=== PATIENT | female | born 1960 | race Caucasian/White ===

== ENCOUNTER 2022-10-21 10:10 | Outpatient (REF) | payer BC, SELFPAY ==
[2022-10-21 11:15] LABS: Hematocrit 39.2 % (37.0-47.0); Hemoglobin 13.3 g/dl (12.0-16.0); Mean Corpuscular HGB Conc 33.9 g/dl (31.0-35.0); Mean Corpuscular Hemoglobin 31.4 pg (27.0-33.0); Mean Corpuscular Volume 92.5 fL (80.0-98.0); Mean Platelet Volume 9.5 fL (9.4-12.3); Platelet Count 250 X10*3/uL (160-400); Red Blood Count 4.24 X10*6/uL (4.20-5.50); Red Cell Distribution Width 11.3 % (11.0-16.0); White Blood Count 6.7 X10*3/uL (4.8-10.8)
[2022-10-21 12:16] LABS: Alanine Aminotransferase 11 U/L (0-31); Albumin Level 4.3 g/dL (3.5-5.0); Alkaline Phosphatase 53 U/L (39-117); Anion Gap 13 (12-20); Aspartate Amino Transferase 16 U/L (5-31); Bilirubin Total 0.6 mg/dL (0.0-1.0); Blood Urea Nitrogen 15 mg/dL (9-16); Calcium 9.3 mg/dL (8.4-10.2); Carbon Dioxide 28 mmol/L (22-29); Chloride 104 mmol/L (96-108); Cholesterol 214 mg/dL; Estimated Glomerular Filt Rate > 60; Glucose Fasting 96 mg/dL (60-99); HDL Cholesterol 91 mg/dL; LDL Cholesterol Calculated 109 mg/dl; Potassium 4.1 mmol/L (3.3-5.1); Sodium 141 mmol/L (135-145); Total Protein 6.6 g/dL (6.5-8.0); Triglycerides 73 mg/dL
[2022-10-21 12:36] LABS: TSH reflex Free T4 2.51 uIU/mL (0.32-4.0)
== END 2022-10-21 10:11 | disposition home or self-care (01) ==
LOC: HO.WFDLDS 10:10
PROVIDERS: Visit Provider Hospitalist
DX: Z00.00 Encounter for general adult medical examination without abnormal findings (principal)
CPT/HCPCS: 36415; 80053; 80061; 84443; 85027

== ENCOUNTER 2023-09-21 15:19 | Outpatient (AMB) | payer BC, SELFPAY ==
--- NOTE | 2023-09-21 15:23 | MHC.PC.OV ---
Vital Signs 09/21/23 15:24 Height 5 ft 5 in Weight 152 lb 8 oz BMI 25.4 BP 122/72 Blood Pressure Location Rt brachial Position Sitting Respiration 13 Pulse 84 Pulse Source Pulse Oximeter Temp 97.5 F Temp Source Temporal Artery Scan Pulse Oximetry (%) 99 Oxygen Delivery Method Room Air Intake Visit Reasons: leg pain, see comments Intake Note: Patient is having pain in left knee. Patient states that back in january she was walking her big powerful dog and the next day her left knee was hurting, she nursed it back to health until it was painful anymore. Patient states that a couple weeks ago she doesnt recall what she did but now the knee pain back. User Interface Designer Required: No Accompanied by: Self / Same As Patient Allergies acetaminophen [From PERCOCET] Allergy (Unknown, Verified 09/21/23 15:30) ITCHINESS oxycodone [From PERCOCET] Allergy (Unknown, Verified 09/21/23 15:30) ITCHINESS Tobacco use date assessed: 09/21/23 Fall risk assessment: No Falls in past year Last assessed Fall Risk: 09/21/23 Dental Screening Dental Screen Date: 09/21/23 Did you have a dental visit in the last 12 months?: Yes Did you have a dental problem in the last 6 months where you did not have access to dental care?: No Was dental information given to patient?: Patient has dentist HPI leg pain, see comments HPI Details 63 y/o female presents with complaints of leg pain. Patient is having pain in left knee. Patient states that back in january she was walking her big powerful dog and the next day her left knee was hurting, she nursed it back to health until it was painful anymore. Patient states that a couple weeks ago she does not recall what she did but now the knee pain back. [facility] Medical History No pertinent past medical history Surgical History No pertinent past surgical history Social History Housing: House Patient Tobacco Use Status: Current everyday Tobacco user Cigarette Packs Per Day: 1 Cigarettes Per Day: 20 Years Smoked: 5 e-Cigarette/Vaping Use: Never Used service: No Current occupational status: employed Current occupation: teacher Cognitive needs: No Hearing needs: No Vision needs: No Questionnaire Thrive Questionnaire Date Thrive assessed: 09/19/22 Review of Systems Const Denies chills, Denies fatigue, Denies fever(s), Denies headache(s) and Denies weakness ENT Denies dizziness and Denies headache(s) Card Denies dyspnea Resp Denies cough, Denies dyspnea, Denies wheezing and Denies other (shortness of breath) Musc Denies numbness and Denies tingling Neuro Denies dizziness, Denies headache(s), Denies numbness, Denies tingling and Denies weakness Psych Denies anxiety and Denies depression Endo Denies fatigue Aller/Immun Denies wheezing Physical exam (Primary Care) Vital Signs: Last Vital Signs Temp 97.5 F 09/21/23 15:24 Pulse 84 09/21/23 15:24 Resp 13 09/21/23 15:24 BP 122/72 09/21/23 15:24 Pulse Ox 99 09/21/23 15:24 Oxygen Delivery Method Room Air 09/21/23 15:24 BMI result Body Mass Index 25.4 Tobacco/Smoking Status: Tobacco use Status Tobacco use date assessed 09/21/23 09/21/23 15:31 Patient Tobacco Use Status Current everyday Tobacco 09/21/23 15:31 e-Cigarette/Vaping Use Never Used 09/21/23 15:38 Thrive Assessment: Date of Thrive Assessment Date Thrive assessed 09/19/22 09/21/23 15:31 Const General: well developed; No acute distress Nutritional Appearance: well nourished Orientation/consciousness: patient oriented x3 [facility] Head: Yes normocephalic and Yes atraumatic Eyes General: appearance normal, both eyes and all related structures Pupils: Equal, round and reactive pupils present EOM: EOMs intact bilaterally Resp Effort & Inspection: normal respiratory effort Neuro General: patient oriented x3 and gait normal Cranial nerves: Yes Equal, round and reactive pupils present Psych Affect: normal affect Assessment and Plan Assessment & Plan (1) Left knee pain: Code(s): M25.562 - Pain in left knee Plan: Left?knee?pain?and?swelling?with?patellar?crepitus Start?physical?therapy Use?ibuprofen/NSAIDs Ice/heat Will?check?x-ray Will?also?check?inflammatory?marker Referred?to[facility]as?per?patient?request Orders: Orders CRP High Sensitivity Today M25.562 - Pain in left knee Rheumatoid Factor Today M25.562 - Pain in left knee Microalbumin, Random (w Creat) Today I10 - Essential (primary) hypertension PT Evaluation and Treatment Today M25.562 - Pain in left knee XR knee LT 3V Today M25.562 - Pain in left knee Erythrocyte Sedimentation Rate Today M25.562 - Pain in left knee Comprehensive [place]. Panel Fast Today Z00.00 - Encounter for general adult medical examination without abnormal findings Lipid Panel Today Z00.00 - Encounter for general adult medical examination without abnormal findings TSH reflex Free T4 Today Z00.00 - Encounter for general adult medical examination without abnormal findings UA and rflx microscopic Today Z00.00 - Encounter for general adult medical examination without abnormal findings Referrals Orthopedics Referral M25.562 - Pain in left knee Coding Level of Care Code Est Pt Level 3 (14282) Diagnoses Left knee pain M25.562
[2023-09-21 15:24] VITALS: BP 122/72; PULSE 84; RESP 13; TEMP 36.4; O2SAT 99; BMI 25.4
== END 2023-09-21 16:39 | disposition home or self-care (01) ==
PROVIDERS: PCP Hospitalist; Visit Provider Family Medicine
DX: M25.562 Pain in left knee (principal)
CPT/HCPCS: 99213

== ENCOUNTER 2024-03-18 08:56 | Outpatient (AMB) | payer BC, SELFPAY ==
[2024-03-18 09:14] VITALS: BP 120/72; PULSE 74; O2SAT 97; BMI 25.5
--- NOTE | 2024-03-18 09:14 | MHC.PC.OV ---
Vital Signs 03/18/24 09:14 Height 5 ft 5 in Weight 153 lb 6 oz BMI 25.5 BP 120/72 Blood Pressure Location Lt brachial Position Sitting Pulse 74 Pulse Source Pulse Oximeter Pulse Oximetry (%) 97 Oxygen Delivery Method Room Air Intake Visit Reasons: Annual PE Intake Note: Patient is here for her physical. Allergies acetaminophen [From PERCOCET] Allergy (Unknown, Verified 03/18/24 09:19) ITCHINESS oxycodone [From PERCOCET] Allergy (Unknown, Verified 03/18/24 09:19) ITCHINESS Medication List - Last Reconciled 03/18/24 by Jose Juan Blair MD No Known Home Meds Tobacco use date assessed: 03/18/24 Fall risk assessment: No Falls in past year Last assessed Fall Risk: 03/18/24 Dental Screening Dental Screen Date: 09/21/23 HPI Annual PE HPI Details 63 y/o female presents for a CPE with f/u labs and health maintenance. No recent labs to review. Pt reports her heart feels heavy recently and notes this only happens at night when she lays down. HPI Comments History of Present Illness Details Documentation assistance for Jose Juan Blair MD, was provided by Neil Rangel,? Firefighting Equipment Specialist on 03/18/2024 at 9:53 AM EST. I, Dr. Blair, have read, observed, and verified documentation. [facility] Medical History (Updated 03/18/24 @ 09:55 by Neil Rangel) No pertinent past medical history Surgical History (Updated 03/18/24 @ 09:21 by Carla Calles SHIPPING TEAM LEADER) H/O left knee surgery No pertinent past surgical history Social History Housing: House Patient Tobacco Use Status: Current everyday Tobacco user Cigarette Packs Per Day: 1 Cigarettes Per Day: 20 Years Smoked: 5 e-Cigarette/Vaping Use: Never Used service: No Current occupational status: employed Current occupation: teacher Cognitive needs: No Hearing needs: No Vision needs: No Questionnaire PHQ-9 Over the last 2 weeks, how often have you been bothered by any of the following problems? 1. Little interest or pleasure in doing things: not at all 2. Feeling down, depressed, or hopeless: not at all 3. Trouble falling or staying asleep, or sleeping too much: not at all 4. Feeling tired or having little energy: not at all 5. Poor appetite or overeating: not at all 6. Feeling bad about yourself - or that you are a failure or have let yourself or your family down: not at all 7. Trouble concentrating on things, such as reading the newspaper or watching television: not at all 8. Moving or speaking so slowly that other people could have noticed. Or the opposite - being so fidgety or restless that you have been moving around a lot more than usual: not at all 9. Thoughts that you would be better off or of hurting yourself in some way: not at all Total score: 0 Depression Screening Interpretation: Negative Depression Screening Done: Yes 71280 - PHQ-9 Billing: Yes Source: Developed by Drs. Maxi Holly, Katherine Barrios, Tony Liao and colleagues, with an educational modesto from [employer]. Thrive Questionnaire Date Thrive assessed: 03/18/24 I am a: Patient What is your living situation today?: I have a steady place to live Within the past 12 months, did the food you bought not last and you didn't have the money to get more?: Never true Within the past 12 months, did you worry whether your food would run out before you got money to buy more?: Never true Do you have trouble paying for medicines?: No Do you have trouble getting transportation to medical appointments?: No Do you have trouble paying your heating and electricity bill?: No Do you have trouble taking care of your child, family member or friend?: No Do you have trouble with day-to-day activities such as bathing, preparing meals, shopping, managing finances, etc.?: No Are you currently unemployed and looking for a job?: No Are you interested in more education?: No THRIVE Score: 0 AUDIT C Alcohol Use Questionnaire (AUDIT-C) 1. How often do you have a drink containing alcohol?: 4 or more times a week 2. How many drinks containing alcohol do you have on a typical day when you are drinking?: 1 or 2 3. How often do you have six or more drinks on one occasion?: Never Total Score: 4 BRONWYN-7 AMB Questionnaire BRONWYN-7 Date BRONWYN - 7 assessed: 03/18/24 Feeling nervous, anxious, or on edge: 0 = Not at all Not being able to stop or control worryin = Not at all Worrying too much about different things: 0 = Not at all Trouble relaxin = Not at all Being so restless that it is hard to sit still: 0 = Not at all Becoming easily annoyed or irritable: 0 = Not at all Feeling afraid as if something awful might happen: 0 = Not at all Total BRONWYN-7 score (0-4 normal; 5-9 mild; 10-14 moderate; 15-21 severe): 0 Source: Developed by Drs. Maxi Holly, Katherine Barrios, Tony Liao and colleagues, with an educational modesto from [employer]. BRONWYN-7 Assessment Billing BRONWYN-7 Assessment Tool: BRONWYN-7 Assessment [id number] Review of Systems Const Denies chills, Denies fatigue, Denies fever(s), Denies headache(s) and Denies weakness Eyes Denies change in vision ENT Denies dizziness, Denies headache(s), Denies hearing loss, Denies nasal congestion, Denies sinus pain, Denies sinus pressure and Denies sore throat Card Denies chest pain, Denies lightheadedness, Denies dyspnea and Denies other (palpitations) Resp Denies cough, Denies dyspnea and Denies wheezing GI Denies abdominal pain, Denies melena, Denies hematochezia, Denies change in bowel habits, Denies dyspepsia and Denies nausea Denies hematuria and Denies dysuria Musc Denies abnormal gait, Denies myalgias, Denies arthralgias, Denies numbness and Denies tingling Skin/Breast Denies rash, Denies unusual bruising and Denies wounds Neuro Denies abnormal gait, Denies dizziness, Denies headache(s), Denies memory loss, Denies numbness, Denies Sensory deficit (Neuro), Denies tingling and Denies weakness Psych Denies anxiety, Denies depression and Denies memory loss Endo Denies cold intolerance, Denies fatigue, Denies heat intolerance, Denies polydipsia and Denies polyuria Vic/Lymph Denies easy bleeding and Denies easy bruising Aller/Immun Denies wheezing Physical exam (Primary Care) Vital Signs: Last Vital Signs Pulse 74 06/03/24 09:14 BP 120/72 03/18/24 09:14 Pulse Ox 97 03/18/24 09:14 Oxygen Delivery Method Room Air 03/18/24 09:14 BMI result Body Mass Index 25.5 Tobacco/Smoking Status: Tobacco use Status Tobacco use date assessed 03/18/24 03/18/24 09:20 Patient Tobacco Use Status Current everyday Tobacco 03/18/24 09:14 e-Cigarette/Vaping Use Never Used 03/18/24 09:14 PHQ-9: PHQ-9 Score PHQ-9: Total score 0 03/18/24 09:42 Depression Screening Interpretation: Negative Thrive Assessment: Date of Thrive Assessment Date Thrive assessed 03/18/24 03/18/24 09:27 Const General: no acute distress, well developed, alert and awake Nutritional Appearance: well nourished Orientation/consciousness: patient oriented x3 HENMT Head: Yes normocephalic and Yes atraumatic Ears: hearing grossly normal bilaterally and TM's normal bilaterally General nose exam: Normal external nose present and Normal nares present Mouth: Normal oral and palatal mucosa present and moist mucous membranes Teeth and gingiva: dentition normal Throat: Yes posterior oropharynx normal Eyes General: appearance normal, both eyes and all related structures Pupils: Equal, round and reactive pupils present and Pupil accommodation reflex normal EOM: EOMs intact bilaterally Neck Neck: Yes normal visual inspection, Yes no lymphadenopathy and Yes trachea midline Thyroid: Thyroid normal Carotids: no bruits Lymphatic: no lymphadenopathy noted Chest Chest palpation & inspection: normal inspection of the chest Resp Effort & Inspection: normal respiratory effort Auscultation: clear to auscultation bilaterally Cardio Rate: regular rate Rhythm: regular rhythm Heart sounds: S1 normal heart sound present, S2 normal heart sound present, no gallops, no murmurs and no rubs Bruits: no abdominal aortic bruits and no carotid bruits GI Palpation (GI): No Abdominal aortic bruit present, Soft to palpation, nontender, No hepatosplenomegaly present and No Rebound tenderness present Auscultation: normal bowel sounds General: Yes no CVA tenderness Back/Spine/Pelvis Back: no CVA tenderness Cervical Spine: cervical ROM normal and No Cervical spine tenderness Thoracic/Lumbar Spine: thoraco-lumbar ROM normal, No pain with thoraco-lumbar ROM, No thoracic spinal tenderness and No lumbar spinal tenderness Skin Lesions: no lesions Rashes: no rashes Trauma: no lacerations or abrasions Wounds: no wounds Nails: normal Neuro General: patient oriented x3 Cranial nerves: Yes Equal, round and reactive pupils present Cognition (Neuro): normal cognition Gait exam (Neuro): Normal gait present Motor exam (neuro): 5/5 motor strength present throughout Sensory Exam: No Sensory deficit (Neuro) Deep tendon reflexes (DTR's): Right patellar reflex intensity grade: 2+ and Left patellar reflex intensity grade: 2+ Extrem General: Yes normal to inspection and No edema Psych Appearance: grossly normal Affect: normal affect Attitude: cooperative Thought process: Normal thought process present Assessment and Plan Assessment & Plan (1) Adult general medical exam: Code(s): Z00.00 - Encounter for general adult medical examination without abnormal findings Plan: 63-year-old?female?presents?for?complete?physical?exam Encouraged?healthy?diet?with?active?lifestyle?and?exercise?as?tolerated (2) Palpitations: Code(s): R00.2 - Palpitations Plan: Patient?describes?heartbeats?at?night?as?heavy?heartbeats Auscultation?is?normal EKG:??Normal?sinus?rhythm,?normal?axis,?normal?intervals,?no?hypertrophy,?no?ST-T-wave?changes. Reassured?patient (3) Left knee pain: Code(s): M25.562 - Pain in left knee Plan: Patient?has?seen?ortho?since?last?visit?and?was?found?to?have?a?meniscal?tear?which?was?repaired. Pain?is?resolving/resolved. (4) Screening for cervical cancer: Code(s): Z12.4 - Encounter for screening for malignant neoplasm of cervix Plan: Followed?by?her?marbleizing machine tender?and?she?says?she?is?up-to-date?with?last?Pap?smear?within?3?years She?says?she?has?had?HPV?about?7?or?8?years?ago. Advised?her?to?follow-up?with?her?marbleizing machine tender?as?recommended (5) Breast cancer screening by mammogram: Code(s): Z12.31 - Encounter for screening mammogram for malignant neoplasm of breast Plan: Patient?has?not?had?a?Pap?smear?in?a?few?years. Ordered (6) Screening for colon cancer: Code(s): Z12.11 - Encounter for screening for malignant neoplasm of colon Plan: Last?colonoscopy?several?years?ago?and?her?behavior management specialist?is?DrBenjamin?Stefania No?family?history?of?colon?cancer?or?polyps.??No?abnormal?colonoscopies. She?wants?to?switch?to?Cologuard?testing?for?her?next?screening?but?currently?she?is?up-to-date. Follow-up?with?GI?as?recommended Orders: Orders AMB EKG-In Office Today R00.2 - Palpitations MM tomosynthesis screening BI Today Z12.31 - Encounter for screening mammogram for malignant neoplasm of breast Coding Level of Care Code Est Pt Level 3 (80366) Est Pt Prev Care 40-64y(00892) Diagnoses Adult general medical exam Z00.00 Palpitations R00.2 Left knee pain M25.562 Screening for cervical cancer Z12.4 Breast cancer screening by mammogram Z12.31 Screening for colon cancer Z12.11 Additional Codes BRONWYN-7 Assessment Billing - BRONWYN-7 Assessment Tool: BRONWYN-7 Assessment 10876 ([id number])
== END 2024-03-18 10:21 | disposition home or self-care (01) ==
PROVIDERS: PCP Family Medicine; Visit Provider Family Medicine
DX: Z00.00 Encounter for general adult medical examination without abnormal findings (principal); R00.2 Palpitations; M25.562 Pain in left knee; Z12.31 Encounter for screening mammogram for malignant neoplasm of breast; Z12.11 Encounter for screening for malignant neoplasm of colon
CPT/HCPCS: 93000; 99213; 99396

== ENCOUNTER 2024-03-18 10:11 | Outpatient (REF) | payer BC, SELFPAY ==
[2024-03-18 11:48] LABS: Appearance Urine Clear; Color Urine Yellow; Glucose Urine UA Negative (Negative); Leukocyte Esterase Urine Trace (Negative); Nitrite Urine Negative (Negative); PH 5.5 (5.0-9.0); UMIC TRIGGER UA YES; Urine Blood Negative (Negative); Urine Ketones Negative (Negative); Urine Protein Negative (Neg-Trace)
[2024-03-18 11:58] LABS: Erythrocyte Sedimentation Rate 3 MM/HR (0-20)
[2024-03-18 12:02] LABS: Bacteria Urine 1+ (None Seen); Hyaline Casts Urine 0-2 /LPF (0-2); RBC Urine 0-2 /HPF (0-2); WBC Urine 0-5 /HPF (0-5)
[2024-03-18 12:20] LABS: Creatinine Urine 118.55 mg/dL; Microalbum/Creatinine Ratio Ur 10.1 ug/mg cr (<30)
[2024-03-18 12:21] LABS: Rheumatoid Factor < 13.0 IU/mL (<15.0)
[2024-03-18 12:29] LABS: Alanine Aminotransferase 10 U/L (0-31); Albumin Level 4.3 g/dL (3.5-5.0); Alkaline Phosphatase 53 U/L (39-117); Anion Gap 14 (12-20); Aspartate Amino Transferase 18 U/L (5-31); Bilirubin Total 0.4 mg/dL (0.0-1.0); Blood Urea Nitrogen 16 mg/dL (9-16); Calcium 9.4 mg/dL (8.4-10.2); Carbon Dioxide 25 mmol/L (22-29); Chloride 108 mmol/L (96-108); Cholesterol 213 mg/dL (<200); Estimated Glomerular Filt Rate > 60; Glucose Fasting 97 mg/dL (60-99); HDL Cholesterol 106 mg/dL (>40); LDL Cholesterol Calculated 96 mg/dL (<100); Sodium 143 mmol/L (135-145); Triglycerides 55 mg/dL (<150)
[2024-03-18 12:37] LABS: TSH reflex Free T4 1.86 uIU/mL (0.32-4.0)
== END 2024-03-18 10:12 | disposition home or self-care (01) ==
LOC: HO.WFDLDS 10:11
PROVIDERS: Visit Provider Family Medicine
DX: Z00.00 Encounter for general adult medical examination without abnormal findings (principal); M25.562 Pain in left knee; I10 Essential (primary) hypertension
CPT/HCPCS: 36415; 80053; 80061; 81001; 82043; 82570; 84443; 85652; 86141; 86431

== ENCOUNTER → 2024-04-23 17:05 | Outpatient (AMB) | payer BC, SELFPAY ==
--- NOTE | 2024-04-23 16:56 | A.OFFPC_ITS ---
Intake Visit Reasons: f/u CPE-labs via telemedicine Intake Note: Patient is scheduled to follow up on blood work today. Allergies acetaminophen [From PERCOCET] Allergy (Unknown, Verified 04/23/24 16:59) ITCHINESS Tobacco use date assessed: 03/18/24 Fall risk assessment: No Falls in past year Last assessed Fall Risk: 04/23/24 Dental Screening Dental Screen Date: 09/21/23 Did you have a dental visit in the last 12 months?: Yes Did you have a dental problem in the last 6 months where you did not have access to dental care?: No Was dental information given to patient?: Patient has dentist HPI f/u CPE-labs via telemedicine HPI Details 63 y/o female presents to f/u CPE-labs v ia telemedicine. Labs were drawn 03/18/24. Reviewed labs with pt. Triglycerides 55. TC 213. LDL 96. HDL 106. PFSH Medical History (Updated 03/18/24 @ 09:55 by Neil Rangel) No pertinent past medical history Surgical History (Updated 03/18/24 @ 09:21 by Carla Calles [facility]) H/O left knee surgery No pertinent past surgical history Social History Housing: House Patient Tobacco Use Status: Current everyday Tobacco user Cigarette Packs Per Day: 1 Cigarettes Per Day: 4 Years Smoked: 5 Packs Per Year: 5 Packs per year/per ci.00 e-Cigarette/Vaping Use: Never Used service: No Current occupational status: employed Current occupation: teacher Cognitive needs: No Hearing needs: No Vision needs: No Questionnaire Thrive Questionnaire Date Thrive assessed: 03/18/24 BRONWYN-7 AMB Questionnaire BRONWYN-7 Date BRONWYN - 7 assessed: 03/18/24 Source: Developed by Drs. Maxi Holly, Katherine Barrios, Tony Liao and colleagues, with an educational modesto from [employer]. Review of Systems Const Denies chills, Denies fatigue, Denies fever(s), Denies headache(s) and Denies weakness ENT Denies dizziness and Denies headache(s) Card Denies dyspnea Resp Denies cough, Denies dyspnea, Denies wheezing and Denies other (shortness of breath) Musc Denies numbness and Denies tingling Neuro Denies dizziness, Denies headache(s), Denies numbness, Denies tingling and Denies weakness Psych Denies anxiety and Denies depression Endo Denies fatigue Aller/Immun Denies wheezing Physical exam (Primary Care) Tobacco/Smoking Status: Tobacco use Status Tobacco use date assessed 03/18/24 04/23/24 17:01 Patient Tobacco Use Status Current everyday Tobacco 04/23/24 17:01 e-Cigarette/Vaping Use Never Used 04/23/24 17:01 Thrive Assessment: Date of Thrive Assessment Date Thrive assessed 03/18/24 04/23/24 17:01 Telehealth Telehealth Telehealth Platform: Telephone Location of provider rendering services: practice address Location of patient: other Patient Identification confirmed using: Name, : Yes Telehealth method: voice only Patient verbally consented to treatment: Yes Patient verbally consented to billing insurance company: Yes Patient informed of any privacy concerns related to visit: No Minutes spent on Phone/Video with Pt.: 6 Assessment and Plan Assessment & Plan (1) Left knee pain: Code(s): M25.562 - Pain in left knee Plan: Rheumatoid?factor?in?inflammatory?markers?are?negative. Patient?has?since?had?further?workup?and?had?a?menisca l?tear.??Now?resolved?and?patient?has?no?further?pain (2) Breast cancer screening by mammogram: Code(s): Z12.31 - Encounter for screening mammogram for malignant neoplasm of breast Plan: Had?ordered?mammogram.??She?has?not?gotten?scheduled?yet?though?she?was?pravin dBenjamin Reminded?patient?to?get?this?scheduled?and?she?will?do?so Plan Lab?work?was?all?okay Orders: Orders Complete Blood Count Auto Diff Today Z00.00 - Encounter for general adult medical examination without abnormal findings Lipid Panel Today Z00.00 - Encounter for general adult medical examination without abnormal findings TSH reflex Free T4 Today Z00.00 - Encounter for general adult medical examination without abnormal findings Comprehensive [place]. Panel Fast Today Z00.00 - Encounter for general adult medical examination without abnormal findings Microalbumin, Random (w Creat) Today I10 - Essential (primary) hypertension UA and rflx microscopic Today Z00.00 - Encounter for general adult medical examination without abnormal findings Coding Level of Care Code Tele Est Pt Level 2 (74060) Diagnoses Left knee pain M25.562 Breast cancer screening by mammogram Z12.31
== END ==
LOC: HO.HMGFM 17:05
PROVIDERS: PCP Family Medicine; Visit Provider Family Medicine
DX: M25.562 Pain in left knee (principal); Z12.31 Encounter for screening mammogram for malignant neoplasm of breast
CPT/HCPCS: 99441

== ENCOUNTER 2025-03-18 10:59 | Outpatient (REF) | payer BC, SELFPAY ==
[2025-03-18 14:52] LABS: Appearance Urine Clear; Color Urine Yellow; Glucose Urine UA Negative (Negative); Leukocyte Esterase Urine Negative (Negative); Nitrite Urine Negative (Negative); Specific Gravity - Urine <= 1.005 (1.005-1.025); Urine Blood Negative (Negative); Urine Ketones Negative (Negative); Urine Protein Negative (Neg-Trace)
[2025-03-18 14:53] LABS: MANUAL DIFF FLAG NO
[2025-03-18 15:03] LABS: Basophils Percent Auto 0.6 % (0-2); Eosinophils Percent Auto 0.6 % (0-4); Hematocrit 36.9 % (37.0-47.0); Hemoglobin 12.5 g/dl (12.0-16.0); Imm Gran Abs Auto 0.02 X10*3/uL (0.00-0.03); Imm Gran Pct Auto 0.4 % (0.0-0.4); Lymphocytes Absolute Auto 1.4 X10*3/uL (1.2-4.9); Lymphocytes Percent Auto 26.1 % (20-40); Mean Corpuscular HGB Conc 33.9 g/dl (31.0-35.0); Mean Corpuscular Hemoglobin 31.5 pg (27.0-33.0); Mean Corpuscular Volume 92.9 fL (80.0-98.0); Mean Platelet Volume 9.8 fL (9.4-12.3); Monocytes Absolute Auto 0.3 X10*3/uL (0.1-1.2); Monocytes Percent Auto 5.3 % (2-11); Neutrophils Absolute Auto 3.5 x10*3/uL (2.0-8.3); Platelet Count 243 X10*3/uL (160-400); Red Blood Count 3.97 X10*6/uL (4.20-5.50); Red Cell Distribution Width 11.4 % (11.0-16.0); White Blood Count 5.3 X10*3/uL (4.8-10.8)
[2025-03-18 15:37] LABS: Microalbumin Urine < 5.0 mg/L
[2025-03-18 16:57] LABS: Alanine Aminotransferase 17 U/L (0-31); Albumin Level 4.3 g/dL (3.5-5.0); Anion Gap 12 (12-20); Aspartate Amino Transferase 27 U/L (5-31); Bilirubin Total 0.5 mg/dL (0.0-1.0); Blood Urea Nitrogen 11 mg/dL (9-16); Calcium 9.5 mg/dL (8.4-10.2); Carbon Dioxide 26 mmol/L (22-29); Chloride 107 mmol/L (96-108); Cholesterol 225 mg/dL (<200); Estimated Glomerular Filt Rate > 60; Glucose Fasting 86 mg/dL (60-99); HDL Cholesterol 98 mg/dL (>40); LDL Cholesterol Calculated 112 mg/dL (<100); Potassium 4.2 mmol/L (3.3-5.1); Sodium 141 mmol/L (135-145); Total Protein 6.5 g/dL (6.5-8.0); Triglycerides 78 mg/dL (<150)
[2025-03-18 17:14] LABS: Alkaline Phosphatase 42 U/L (39-117); TSH reflex Free T4 2.78 uIU/mL (0.32-4.0)
== END 2025-03-18 11:00 | disposition home or self-care (01) ==
LOC: HO.WFDLDS 10:59
PROVIDERS: Visit Provider Family Medicine
DX: Z00.00 Encounter for general adult medical examination without abnormal findings (principal); I10 Essential (primary) hypertension
CPT/HCPCS: 36415; 80053; 80061; 81003; 82043; 82570; 84443; 85025

== ENCOUNTER 2025-05-05 14:59 | Outpatient (AMB) | payer BC, SELFPAY ==
--- NOTE | 2025-05-05 15:02 | A.OFFPC_ITS ---
Vital Signs 05/05/25 15:06 Height 5 ft 6 in Weight 140 lb BMI 22.6 BP 108/67 Blood Pressure Location Lt brachial Position Sitting Respiration 12 Pulse 62 Pulse Source Pulse Oximeter Temp 97.1 F Temp Source Oral Pulse Oximetry (%) 97 Oxygen Delivery Method Room Air Intake Visit Reasons: Physical / Dr. Bennett Pt. 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 Allergies acetaminophen (From PERCOCET) Allergy (Unknown, Verified 05/05/25 15:13) ITCHINESS Medication List - Last Reconciled 05/05/25 by KATYA Euceda- No Known Home Meds Tobacco use date assessed: 05/05/25 Fall risk assessment: No Falls in past year Last assessed Fall Risk: 05/05/25 Dental Screening Dental Screen Date: 05/05/25 Did you have a dental visit in the last 12 months?: Yes Did you have a dental problem in the last 6 months where you did not have access to dental care?: No Was dental information given to patient?: Patient has dentist HPI HPI Comments History of Present Illness Details 64 y/o F with hx of HPV, hx of skin ca ( squamous cell ca, basal cell ca and melanoma in situ), current smoker s/p meniscal tear repair L Fhx: Dad age 92; Brother Cirrhosis on hospice 55; Health Maintenance: Tdap 2020 Pap 2020 Colon - done by Dr Aguiar 2019, 10 year recall, wants Cologaurd next screen Mammo declined Dexa declined Lung ca screening Specialists: Derm Malachi Renner [place], [place] [employer] [facility] - contacts History of Present Illness - The patient is a 64 year old female pr esenting for a CPE. Will be transfer of care from Dr Ta per her request - record was reviewed. c/o bruised spine and vertigo. - Vertigo episode during a cross-country trip; resolved after stopping driving; no further episodes. This has happened a few times over the last year - Reports lingering bruise sensation on the spine; pain varies, aggravated by sitting/driving. Started 1 yr ago after long distance drive. - Current smoker Family History - Mother had ductal carcinoma, received radiation therapy. - Cousin with breast cancer, never had wanda dai. - Father at 90 years, heart-rel ated. - Brother diagnosed with cirrhosis. - Sister diagnosed with Atrial Fibrillat ion. - No known family history of liver disea se in females. Social History - Recent usp, previously working. - Reports trip across the country as a r ecent activity. - Family status includes five children a nd awaiting the third grandchild. - Occasional alcohol consumption, with n o reports of excessive intake. - Smoker, recently attempted cessation f or three months. - Active lifestyle with regular walking; decreased since previous May. Health Maintenance - Last Pap smear: 2020, results normal. - Normal colonoscopy in 2019, next scree leonel planned in 10 years. - Bone density noted to be normal in the past declined future - Skin cancer surveillance every six mon ths, recent lesion removal. - History of HPV. - No recent mammogram, declined future Review of Systems - Cardiovascular: Reports heart feels un usually heavy when lying down. Denies shortness of breath. - Musculoskeletal: Reports persistent br uise on the lower spine, history of knee surgery. - Neurological: Reports a past significa nt episode of vertigo, no recent occurrences. - Gastrointestinal: Diagnosed with anemi a, status mild. - Eyes: Denies vision changes despite re quiring reading glasses. - Respiratory: Previously a smoker, atte mpting cessation. Physical Exam General: Well developed, well nourished, in no acute distress. Appears stated age. Head: Normocephalic, atraumatic. Eyes: Pupils are equal, round and reactive to light and accommodation. Conjunctivae are clear. Vision grossly normal. Ears: TMs clear AU, EACS WNL Nose: Patent, without discharge. Neck: Supple, no adenopathy or thyromegaly. Breast: Declined mammogram, will consider in the future. Lungs: Clear to auscultation bilaterally. No rales, rhonchi or wheeze noted. Good air flow in all yang. Heart: Regular rate and rhythm. 2/6 murmur noted (new). No clicks, rubs or gallops are noted. No carotid bruit bilat Abdomen: Bowel sounds present in all quadrants. The abdomen is soft, nontender, with no masses or organomegaly noted. No hernias are noted. + palpable and audible pulse over Abd aorta : Deferred. Reviewed recommendations for routine [employer]. Pulses: Peripheral pulses are equal and palpable bilaterally. Extremities: No clubbing, cyanosis nor edema is noted. Neurologic: Gait and station normal. Cranial Nerves 2-12 intact. Motor strength grossly symmetrical and intact. No sensory loss. Balance normal. Pain over distal thoracic spine w/ palpation Skin: No rashes, ulcers, or lesions noted. Turgor is good. Skin color is good. Hair and nails are without abnormalities. Psych: Normal eye contact, affect and mood appropriate, and normal interactions. Patient is alert and appropriate to context. Results 03/2025 - Labs: Mild anemia noted with RBC of 3. 97 and hematocrit of 36.9. Fasting glucose 86. Cholesterol: Total - 225, LDL - 112, HDL - 98. Normal CBC, electrolytes, renal and liver function tests. - Tests and Diagnostics: Normal bone den sity test, normal colonoscopy in 2019. - TSH levels normal. - HDL level provides cardio protection a midst high total cholesterol. Discussion Notes I discussed with the patient the presence of a heart murmur which will require an echocardiogram to further evaluate. We talked about the nature of murmurs and potential implications including valve issues or aneurysms. I explained the necessity for this diagnostic study and the potential follow-up depending on results. I reviewed the patient's smoking history and strongly advised smoking cessation for cardiovascular health. The patient was informed of the significance of cholesterol levels and advised on monitoring. We also discussed potential management strategies for the recurring vertigo, including possible vestibular therapy if symptoms return. The importance of regular dermatological examinations for the history of skin cancer was emphasized. I scheduled further investigations with the cardiology department to ensure proper follow-up. Assessment and Plan 1. Anemia - Continual monitoring, nutritional guid ance. 2. Hyperlipidemia - Monitoring cholesterol, focus on cardi o protection via HDL. 3. Vertigo - Cautious movement, observe for recurre nce. Consider vestibular therapy or chiro 4. Heart murmur - Echocardiogram recommended. ekg done and NSR no change from last year 5. Bruised spine - Observation, symptomatic relief. offe red xray and declined 6. Smoking - Encourage cessation efforts. will need to review lung ca screening at next visit as this was not addressed today. RTO 1 YEAR CPE, OFFICE TO SCHEDULE FU ONCE ECHO RESULTED. Patient Instructions - Schedule an echocardiogram for the hea rt murmur. - Aim for continued monitoring of choles terol by maintaining a healthy lifestyle. - Be cautious with head movements to man age potential vertigo symptoms. - Keep a record of any changes or new sy mptoms and report them during follow- ups. - Try to quit smoking completely to impr ove overall health. - Maintain regular dermatology check-ups every six months for skin health. Consent Patient was informed and verbally consented to the use of an ambient scribe for clinic note documentation during this visit. An additional 30 minutes was spent addressing the problem(s) noted at todays visit. This includes time spent before the visit reviewing the chart, time spent during the visit, and time spent after the visit on documentation reviewing laboratory results, diagnostic imaging, medications, performing a medically necessary evaluation, counseling on diagnoses, care coordination, ordering appropriate tests, ordering appropriate medications, review of tests performed by other providers, reporting test results with the patient, communication with other healthcare providers. [facility] Medical History (Updated 05/05/25 @ 16:03 by ASHLEY Euceda) No pertinent past medical history Surgical History (Updated 05/05/25 @ 12:15 by ASHLEY Euceda) H/O left knee surgery History of colonoscopy (~06/09/20) No pertinent past surgical history Social History Housing: House Patient Tobacco Use Status: Current everyday Tobacco user Cigarette Packs Per Day: 1 Cigarettes Per Day: 4 Years Smoked: 5 e-Cigarette/Vaping Use: Never Used service: No Current occupational status: employed Current occupation: teacher Cognitive needs: No Hearing needs: No Vision needs: No Questionnaire PHQ-9 Over the last 2 weeks, how often have you been bothered by any of the following problems? 1. Little interest or pleasure in doing things: not at all 2. Feeling down, depressed, or hopeless: not at all 3. Trouble falling or staying asleep, or sleeping too much: not at all 4. Feeling tired or having little energy: not at all 5. Poor appetite or overeating: not at all 6. Feeling bad about yourself - or that you are a failure or have let yourself or your family down: not at all 7. Trouble concentrating on things, such as reading the newspaper or watching television: not at all 8. Moving or speaking so slowly that other people could have noticed. Or the opposite - being so fidgety or restless that you have been moving around a lot more than usual: not at all 9. Thoughts that you would be better off or of hurting yourself in some way: not at all Total score: 0 Depression Screening Interpretation: Negative Depression Screening Done: Yes 66836 - PHQ-9 Billing: Yes Source: Developed by Drs. Maxi Holly, Katherine Barrios, Tony Liao and colleagues, with an educational modesto from [facility]. Thrive Questionnaire Date Thrive assessed: 05/05/25 I am a: Patient What is your living situation today?: I have a steady place to live Within the past 12 months, did the food you bought not last and you didn't have the money to get more?: Never true Within the past 12 months, did you worry whether your food would run out before you got money to buy more?: Never true Do you have trouble paying for medicines?: No Do you have trouble getting transportation to medical appointments?: No Do you have trouble paying your heating and electricity bill?: No Do you have trouble taking care of your child, family member or friend?: No Do you have trouble with day-to-day activities such as bathing, preparing meals, shopping, managing finances, etc.?: No Are you currently unemployed and looking for a job?: No Are you interested in more education?: No Please select the resources that you would like help with: None Currently or been in a relationship where the following occur: No concerns reported THRIVE Score: 0 AUDIT C Alcohol Use Questionnaire (AUDIT-C) 1. How often do you have a drink containing alcohol?: Never 3. How often do you have six or more drinks on one occasion?: Never Total Score: 0 Score Reviewed/Action Taken: Yes BRONWYN-7 AMB Questionnaire BRONWYN-7 Date BRONWYN - 7 assessed: 05/05/25 Feeling nervous, anxious, or on edge: 0 = Not at all Not being able to stop or control worryin = Not at all Worrying too much about different things: 0 = Not at all Trouble relaxin = Not at all Being so restless that it is hard to sit still: 0 = Not at all Becoming easily annoyed or irritable: 0 = Not at all Feeling afraid as if something awful might happen: 0 = Not at all Total BRONWYN-7 score (0-4 normal; 5-9 mild; 10-14 moderate; 15-21 severe): 0 Source: Developed by Drs. Maxi Holly, Katherine Barrios, Tony Liao and colleagues, with an educational modesto from [facility]. BRONWYN-7 Assessment Billing BRONWYN-7 Assessment Tool: BRONWYN-7 Assessment 54132 Physical exam (Primary Care) Vital Signs: Last Vital Signs Temp 97.1 F 05/05/25 15:06 Pulse 62 05/05/25 15:06 Resp 12 05/05/25 15:06 BP 108/67 05/05/25 15:06 Pulse Ox 97 05/05/25 15:06 Oxygen Delivery Method Room Air 05/05/25 15:06 BMI result Body Mass Index 22.6 Tobacco/Smoking Status: Tobacco use Status Tobacco use date assessed 05/05/25 05/05/25 15:05 Patient Tobacco Use Status Current everyday Tobacco 05/05/25 15:05 e-Cigarette/Vaping Use Never Used 05/05/25 15:05 Are you ready to quit: No Tobacco cessation counseling provided: Yes Items discussed: Nicotine replacement, QuitWorks and Other Relapse Prevention: discussed the importance of a supportive environment, discussed extending NRT, discussed negative mood or depression after quitting, weight gain after smoking is common and discussed dietary, exercise and/or lifestyle changes Number of minutes spent counselin CPT code: 72421 - 4-10 Minutes PHQ-9: PHQ-9 Score PHQ-9: Total score 0 05/05/25 15:10 Depression Screening Interpretation: Negative Thrive Assessment: Date of Thrive Assessment Date Thrive assessed 05/05/25 05/05/25 15:05 Currently or been in a relationship where the following occur: No concerns re ported Office Procedures EKG 28805-[id number], Complete Coding Level of Care Code Est Pt Level 4 (08462) Est Pt Prev Care 40-64y(55744) Diagnoses Adult general medical exam Z00.00 Mammogram declined Z53.20 Dual energy x-ray photon absorptiometry (DEXA) scan declined Z53.20 History of skin cancer Z85.828 History of human papilloma virus Z86.19 Benign paroxysmal positional vertigo due to bilateral vestibular disorder H81.13 Laterality: bilateral Heart murmur R01.1 Current smoker F17.200 Palpitations R00.2 Prominent abdominal aortic pulse R09.89 Encounter to establish care Z. CPT Codes EKG - CPT: 37892-Rdagcuwitmegpfkxy, Complete ([id number]) Additional Codes BRONWYN-7 Assessment Billing - BRONWYN-7 Assessment Tool: BRONWYN-7 Assessment 53585 ([id number]) PHQ-9 - 09057 - PHQ-9 Billing: Yes ([id number]) Vital Signs *Quality* - CPT code: 44522 - 4-10 Minutes ([id number]) Assessment & Plan Assessment & Plan (1) Adult general medical exam: Onset Date: ~05/05/25 Code(s): Z00.00 - Encounter for general adult medical examination without abnormal findings Category: Medical (2) Mammogram declined: Code(s): Z53.20 - Procedure and treatment not carried out because of patient's decision for unspecified reasons Category: Medical (3) Dual energy x-ray photon absorptiometry (DEXA) scan declined: Code(s): Z53.20 - Procedure and treatment not carried out because of patient's decision for unspecified reasons Category: Medical (4) History of skin cancer: Code(s): Z85.828 - Personal history of other malignant neoplasm of skin Category: Medical (5) History of human papilloma virus: Code(s): Z86.19 - Personal history of other infectious and parasitic diseases Category: Medical (6) BPPV (benign paroxysmal positional vertigo): Code(s): H81.10 - Benign paroxysmal vertigo, unspecified ear Category: Medical Qualifiers: Laterality: bilateral Qualified Code(s): H81.13 - Benign paroxysmal vertigo, bilateral (7) Heart murmur: Code(s): R01.1 - Cardiac murmur, unspecified Category: Medical (8) Current smoker: Code(s): F17.200 - Nicotine dependence, unspecified, uncomplicated Category: Medical (9) Palpitations: Code(s): R00.2 - Palpitations Category: Medical (10) Prominent abdominal aortic pulse: Code(s): R09.89 - Other specified symptoms and signs involving the circulatory and respiratory systems Category: Medical (11) Encounter to establish care: Code(s): Z76.89 - Persons encountering health services in other specified circumstances Plan . Orders: Orders CA echo transthoracic complete Today R01.1 - Cardiac murmur, unspecified Patient Instructions: HEALTH SCREENINGS FOR WOMEN YOU SHOULD VISIT YOUR HEALTH CARE PROVIDER FROM TIME TO TIME, EVEN IF YOU ARE HEALTHY. THE PURPOSE OF THESE VISITS IS TO: SCREEN FOR MEDICAL ISSUES ASSESS YOUR RISK FOR FUTURE MEDICAL PROBLEMS ENCOURAGE A HEALTHY LIFESTYLE UPDATE VACCINATIONS AND OTHER PREVENTIVE CARE SERVICES HELP YOU GET TO KNOW YOUR PROVIDER IN CASE OF AN ILLNESS INFORMATION EVEN IF YOU FEEL FINE, YOU SHOULD STILL SEE YOUR PROVIDER FOR REGULAR CHECKUPS. THESE VISITS CAN HELP YOU AVOID PROBLEMS IN THE FUTURE. FOR EXAMPLE, THE ONLY WAY TO FIND OUT IF YOU HAVE HIGH BLOOD PRESSURE IS TO HAVE IT CHECKED REGULARLY. HIGH BLOOD SUGAR AND HIGH CHOLESTEROL LEVELS ALSO MAY NOT HAVE ANY SYMPTOMS IN THE EARLY STAGES. A SIMPLE BLOOD TEST CAN CHECK FOR THESE CONDITIONS. THERE ARE SPECIFIC TIMES WHEN YOU SHOULD SEE YOUR PROVIDER OR RECEIVE SPECIFIC HEALTH SCREENINGS. THE [place] PREVENTIVE SERVICES T[employer]CE PUBLISHES A LIST OF RECOMMENDED SCREENINGS. BELOW ARE SCREENING GUIDELINES FOR WOMEN AGES 18 TO 39. BLOOD PRESSURE SCREENING YOUR BLOOD PRESSURE SHOULD BE CHECKED AT LEAST ONCE EVERY 3 TO 5 YEARS IF: YOUR BLOOD PRESSURE IS IN THE NORMAL RANGE (TOP NUMBER LESS THAN 120 MM HG AND BOTTOM NUMBER LESS THAN 80 MM HG) YOU DON'T HAVE RISK FACTORS FOR HIGH BLOOD PRESSURE ASK YOUR PROVIDER IF YOU NEED YOUR BLOOD PRESSURE CHECKED MORE OFTEN IF: THE TOP NUMBER IS 120 TO 129 MM HG OR THE BOTTOM NUMBER IS 70 TO 79 MM HG YOU HAVE DIABETES, HEART DISEASE, KIDNEY PROBLEMS, ARE OVERWEIGHT, OR HAVE CERTAIN OTHER HEALTH CONDITIONS YOU HAVE A FIRST-DEGREE RELATIVE WITH HIGH BLOOD PRESSURE YOU ARE BLACK YOU HAD HIGH BLOOD PRESSURE DURING A IF THE TOP NUMBER IS 130 MM HG OR GREATER OR THE BOTTOM NUMBER IS 80 MM HG OR GREATER, THIS IS CONSIDERED STAGE 1 HYPERTENSION. SCHEDULE AN APPOINTMENT WITH YOUR PROVIDER TO LEARN HOW YOU CAN REDUCE YOUR BLOOD PRESSURE. WATCH FOR BLOOD PRESSURE SCREENINGS IN YOUR AREA. ASK YOUR PROVIDER IF YOU CAN STOP IN TO HAVE YOUR BLOOD PRESSURE CHECKED. BREAST CANCER SCREENING EXPERTS DO NOT AGREE ABOUT THE BENEFITS OF BREAST SELF-EXAMS IN FINDING BREAST CANCER OR SAVING LIVES. TALK TO YOUR PROVIDER ABOUT WHAT IS BEST FOR YOU. A SCREENING MAMMOGRAM IS NOT RECOMMENDED FOR MOST WOMEN UNDER AGE 40. YOUR PROVIDER MAY DISCUSS AND RECOMMEND MAMMOGRAMS, MRI SCANS, OR ULTRASOUNDS IF YOU HAVE AN INCREASED RISK FOR BREAST CANCER, SUCH : A MOTHER OR SISTER WHO HAD BREAST CANCER AT A YOUNG AGE (MOST OFTEN STARTING SCREENING EARLIER THAN THE AGE THE CLOSE RELATIVE WAS DIAGNOSED) YOU CARRY A HIGH-RISK GENETIC MARKER CERVICAL CANCER SCREENING CERVICAL CANCER SCREENING SHOULD START AT AGE 21 YEARS UNLESS YOUR PROVIDER ADVISES OTHERWISE. AFTER THE FIRST TEST: WOMEN AGES 21 THROUGH 29 SHOULD HAVE A PAP TEST EVERY 3 YEARS. EXOPRTS DO NOT AGREE ON WHETHER HPV TESTING IS RECOMMENDED FOR THIS AGE GROUP. WOMEN AGES 30 THROUGH 65 SHOULD BE SCREENED WITH EITHER A PAP TEST EVERY 3 YEARS OR THE HPV TEST EVERY 5 YEARS OR BOTH TESTS EVERY 5 YEARS (CALLED COTESTING ). WOMEN WHO HAVE BEEN TREATED FOR PRECANCER (CERVICAL DYSPLASIA) SHOULD CONTINUE TO HAVE PAP TESTS FOR 20 YEARS AFTER TREATMENT OR UNTIL AGE 65, WHICHEVER IS LONGER. IF YOU HAVE HAD YOUR UTERUS AND CERVIX REMOVED (TOTAL HYSTERECTOMY), AND YOU HAVE NOT BEEN DIAGNOSED WITH CERVICAL CANCER OR PRECANCER (HIGH GRADE CERVICAL NEOPLASIA), YOU DO NOT NEED CERVICAL CANCER SCREENING. CHOLESTEROL SCREENING CHOLESTEROL SCREENING SHOULD BEGIN AT: AGE 45 FOR WOMEN WITH NO KNOWN RISK FACTORS FOR CORONARY HEART DISEASE AGE 20 FOR WOMEN WITH KNOWN RISK FACTORS FOR CORONARY HEART DISEASE REPEAT CHOLESTEROL SCREENING SHOULD TAKE PLACE: EVERY 5 YEARS FOR WOMEN WITH NORMAL CHOLESTEROL LEVELS MORE OFTEN IF CHANGES OCCUR IN LIFESTYLE (INCLUDING WEIGHT GAIN AND DIET) MORE OFTEN IF YOU HAVE DIABETES, HEART DISEASE, KIDNEY PROBLEMS, OR CERTAIN OTHER CONDITIONS DIABETES SCREENING YOU SHOULD BE SCREENED FOR DIABETES STARTING AT AGE 35 AND THEN REPEATED EVERY 3 YEARS IF YOU HAVE NO RISK FACTORS FOR DIABETES. SCREENING MAY NEED TO START EARLIER AND BE REPEATED MORE OFTEN IF YOU HAVE OTHER RISK FACTORS FOR DIABETES, SUCH : YOU HAVE A FIRST DEGREE RELATIVE WITH DIABETES. YOU ARE OVERWEIGHT OR HAVE OBESITY. YOU HAVE HIGH BLOOD PRESSURE, PREDIABETES, OR A HISTORY OF HEART DISEASE. SCREENING FOR DIABETES SHOULD BE DONE IF YOU ARE PLANNING TO BECOME AND YOU ARE OVERWEIGHT AND HAVE OTHER RISK FACTORS SUCH HIGH BLOOD PRESSURE. DENTAL EXAM GO TO THE DENTIST ONCE OR TWICE EVERY YEAR FOR AN EXAM AND CLEANING. YOUR DENTIST WILL EVALUATE IF YOU NEED MORE FREQUENT VISITS. EYE EXAM HAVE AN EYE EXAM EVERY 5 TO 10 YEARS BEFORE AGE 40. IF YOU HAVE VISION PROBLEMS, HAVE AN EYE EXAM EVERY 2 YEARS OR MORE OFTEN IF RECOMMENDED BY YOUR PROVIDER. YOU SHOULD HAVE AN EYE EXAM THAT INCLUDES AN EXAMINATION OF YOUR RETINA (BACK OF YOUR EYE) AT LEAST EVERY YEAR IF YOU HAVE DIABETES. IMMUNIZATIONS COMMONLY NEEDED VACCINES INCLUDE: FLU SHOT: GET ONE EVERY YEAR. COVID-19 VACCINE: ASK YOUR PROVIDER WHAT IS BEST FOR YOU. TETANUS-DIPHTHERIA AND ACELLULAR PERTUSSIS (TDAP) VACCINE: HAVE ONE AT OR AFTER AGE 19 ONE OF YOUR TETANUS-DIPHTHERIA VACCINES IF YOU DID NOT RECEIVE IT AN ADOLESCENT. TETANUS-DIPHTHERIA: HAVE A BOOSTER (OR TDAP) EVERY 10 YEARS. VARICELLA VACCINE: RECEIVE 2 DOSES IF YOU NEVER HAD CHICKENPOX OR THE VARICELLA VACCINE. HEPATITIS B VACCINE: RECEIVE 2, 3, OR 4 DOSES, DEPENDING ON YOUR EXACT CIRCUMSTANCES. MEASLES, MUMPS, AND RUBELLA (MMR) VACCINE: RECEIVE 1 TO 2 DOSES IF YOU ARE NOT ALREADY IMMUNE TO MMR. YOUR PROVIDER CAN TELL YOU IF YOU ARE IMMUNE. ASK YOUR PROVIDER ABOUT THE HUMAN PAPILLOMAVIRUS (HPV) VACCINE IF: YOU HAVE NOT RECEIVED THE HPV VACCINE IN THE PAST YOU HAVE NOT COMPLETED THE FULL VACCINE SERIES (YOU SHOULD CATCH UP ON THIS SHOT) ASK YOUR PROVIDER IF YOU SHOULD RECEIVE OTHER IMMUNIZATIONS IF YOU HAVE CERTAIN HEALTH PROBLEMS THAT INCREASE YOUR RISK FOR SOME DISEASES SUCH PNEUMONIA. INFECTIOUS DISEASE SCREENING WOMEN WHO ARE SEXUALLY ACTIVE SHOULD BE SCREENED FOR CHLAMYDIA AND GONORRHEA UP UNTIL AGE 25. WOMEN 25 YEARS AND OLDER SHOULD BE SCREENED FOR CHLAMYDIA AND GONORRHEA IF AT HIGH RISK. SCREENING FOR HEPATITIS C: ALL ADULTS AGES 18 TO 79 SHOULD GET A ONE-TIME TEST FOR HEPATITIS C. PEOPLE SHOULD BE SCREENED AT EVERY . SCREENING FOR HUMAN IMMUNODEFICIENCY VIRUS (HIV): ALL PEOPLE AGES 15 TO 65 SHOULD GET A ONE-TIME TEST FOR HIV. DEPENDING ON YOUR LIFESTYLE AND MEDICAL HISTORY, YOU MAY ALSO NEED TO BE SCREENED FOR INFECTIONS SUCH SYPHILIS AND HIV, WELL OTHER INFECTIONS. PHYSICAL EXAM ALL ADULTS SHOULD VISIT THEIR PROVIDER FROM TIME TO TIME, EVEN IF THEY ARE HEALTHY. THE PURPOSE OF THESE VISITS IS TO: SCREEN FOR DISEASE ASSESS YOUR RISK OF FUTURE MEDICAL PROBLEMS ENCOURAGE A HEALTHY LIFESTYLE UPDATE YOUR VACCINATIONS AND OTHER PREVENTIVE CARE SERVICES MAINTAIN A RELATIONSHIP WITH A PROVIDER IN CASE OF AN ILLNESS YOUR HEIGHT, WEIGHT, AND BMI SHOULD BE CHECKED AT EVERY EXAM. DURING YOUR EXAM, YOUR PROVIDER MAY ASK YOU ABOUT: DEPRESSION AND ANXIETY DIET AND EXERCISE ALCOHOL AND TOBACCO USE SAFETY ISSUES, SUCH USING SEAT BELTS, SMOKE DETECTORS, AND INTIMATE PARTNER VIOLENCE YOUR MEDICINES AND RISK FOR INTERACTIONS SKIN SELF-EXAM YOUR PROVIDER MAY CHECK YOUR SKIN FOR SIGNS OF SKIN CANCER, ESPECIALLY IF YOU'RE AT HIGH RISK, SUCH IF YOU: HAVE HAD SKIN CANCER BEFORE HAVE CLOSE RELATIVES WITH SKIN CANCER HAVE A WEAKENED IMMUNE SYSTEM OTHER SCREENING TALK WITH YOUR PROVIDER ABOUT COLON CANCER SCREENING IF YOU HAVE A STRONG FAMILY HISTORY OF COLON CANCER OR POLYPS, OR IF YOU HAVE HAD INFLAMMATORY BOWEL DISEASE OR POLYPS YOURSELF. ROUTINE BONE DENSITY SCREENING OF WOMEN UNDER 40 IS NOT RECOMMENDED.
[2025-05-05 15:06] VITALS: BP 108/67; PULSE 62; RESP 12; TEMP 36.2; O2SAT 97; BMI 22.6
--- OUTSIDE RECORDS SUMMARY | 2025-05-05 15:43 | XMS_ITS | Clinical Summary ---
Author Organization [facility] [address] ity Address [id number] [place] [id number] Care Team Providers Care Trailer Sections Assembler Name Role Phone Unavailable Primary Care Provider Unavailabl e Encounters Date Type Department Care Team Description 05/05/2025 Telephone Gastroenterology - [address] [place] [address] Bal Ward MD from Last 3 Months Social History Tobacco Use Types Packs/Day Years Used Date Smoking Tobacco: Never Assessed Comments Unknown Sex and Gender Information Value Date Recorded Sex Assigned at Not on file Legal Sex Female 2:02 AM EST Gender Identity Not on file Sexual Orientation Not on file Plan of Treatment Health Maintenance Due Date Last Done Comments Breast Cancer Screening 1960 DTaP,Tdap,and Td Vaccines (1 - Tdap) 1978 Cervical Cancer Screening: P ap Smear 1980 Pneumococcal Vaccine: 50+ Ye ars (1 of 1 - PCV) 2009 Zoster Vaccines (1 of 2) 2009 COVID-19 Vaccine (2023-2 5 season) 2024 Depression Screening 10/16/2024 Colorectal Cancer Screening: Colonoscopy 05/05/2025 Falls Risk Assessment 05/05/2025 Hepatitis C Screening 05/05/2025 Osteoporosis Screening (Bone Density Screening) 05/05/2025 Social Influencers of Health Screening 05/05/2025 Influenza Vaccine (#1) 2025 RSV Immunization Adult Patie nts (1 - 1-dose 75+ series) 2034 HIB Vaccines Aged Out No longer eligi ble based on patient's age to complete this topic HPV Vaccines Aged Out No longer eligi ble based on patient's age to complete this topic Hepatitis A Vaccines Aged Out No long er eligible based on patient's age to complete this topic Hepatitis B Vaccines Aged Out No long er eligible based on patient's age to complete this topic IPV Vaccines Aged Out No longer eligi ble based on patient's age to complete this topic MMR Vaccines Aged Out No longer eligi ble based on patient's age to complete this topic Meningococcal ACWY Vaccine Aged Out N o longer eligible based on patient's age to complete this topic Meningococcal B Vaccine Aged Out No l onger eligible based on patient's age to complete this topic RSV Immunization Patients Un stacy 20 months Aged Out No longer eligible b ased on patient's age to complete this topic Varicella Vaccines Aged Out No longer eligible based on patient's age to complete this topic
== END 2025-05-05 15:55 | disposition home or self-care (01) ==
LOC: HO.HMCFM 15:00
PROVIDERS: PCP Family Medicine; Visit Provider Nurse Practitioner Family
DX: Z00.00 Encounter for general adult medical examination without abnormal findings (principal); H81.13 Benign paroxysmal vertigo, bilateral; R01.1 Cardiac murmur, unspecified; F17.200 Nicotine dependence, unspecified, uncomplicated; R00.2 Palpitations; Z53.20 Procedure and treatment not carried out because of patient's decision for unspecified reasons; Z85.828 Personal history of other malignant neoplasm of skin; Z86.19 Personal history of other infectious and parasitic diseases; R09.89 Other specified symptoms and signs involving the circulatory and respiratory systems

== ENCOUNTER → 2025-05-05 14:59 | Outpatient (BNVA) | payer BC, SELFPAY | PROVIDERS: PCP Family Medicine; Visit Provider Nurse Practitioner Family | DX: Z00.00 Encounter for general adult medical examination without abnormal findings (principal); D64.9 Anemia, unspecified; E78.5 Hyperlipidemia, unspecified; R01.1 Cardiac murmur, unspecified; H81.13 Benign paroxysmal vertigo, bilateral; R00.2 Palpitations; R09.89 Other specified symptoms and signs involving the circulatory and respiratory systems; F17.200 Nicotine dependence, unspecified, uncomplicated; Z76.89 Persons encountering health services in other specified circumstances; Z53.20 Procedure and treatment not carried out because of patient's decision for unspecified reasons; Z85.828 Personal history of other malignant neoplasm of skin; Z86.19 Personal history of other infectious and parasitic diseases | CPT/HCPCS: 93005; 96127 ==

== ENCOUNTER → 2025-06-06 07:56 | Outpatient (REF) | payer BC, SELFPAY ==
--- NOTE | 2025-06-06 07:58 | CA_ITS ---
Transthoracic Echocardiogram Patient (Last, First, Middle): Delmy Lewis, Gender: F Date of : 1960 Age: 64 Procedure Date: 06/06/2025 Procedure Type: Transthoracic Echocardiogram Location: OP Height: 167.64 cm Weight: 62.14 kg BSA: 1.70 m2 Heart Rate: bpm BP: 116 / 60 mmHg Member Of Congress: Referring MD: Karla Gilmore [facility] Synthetic Staple Extruder: Edward Perez MD Symptoms: R01.1 Cardiac murmur, unspecified Study Quality: Good ECG Rhythm: Sinus Conclusions: - 1. Normal LV ejection fraction 55-60% 2. Bicuspid aortic valve with early mild aortic stenosis 3. Upper limits of normal ascending aortic size 4. Normal RV systolic pressure 5. No gross pericardial effusion Findings Left Ventricle Normal left ventricular size, thickness, and systolic function. The visually estimated ejection fraction is between 55-60%. Spectral Doppler is indicative of a normal filling pattern. Right Ventricle Normal right ventricular cavity size and systolic function. Atria Both atria are normal in size. There is lipomatous hypertrophy of the interatrial septum. There is no evidence of interatrial shunt. Aortic Valve There is a bicuspid aortic valve. There is mild aortic valve stenosis. The mean gradient is 11 mmHg. The aortic valve area is 2.04 cm2. There is no aortic valve regurgitation. Mitral Valve Normal mitral valve structure and function. There is trace mitral valve regurgitation. There is no mitral valve stenosis. Pulmonic Valve The pulmonic valve is likely normal. There is trace pulmonic valve regurgitation. Tricuspid Valve Normal tricuspid valve structure. There is trace tricuspid valve regurgitation. The right ventricular systolic pressure is normal. The right ventricular systolic pressure is 19 mmHg. Normal right atrial pressure. There is no evidence of pulmonary hypertension. Great Vessels There is no dilatation of the ascending aorta measuring 3.50 cm. The visualized portions of the pulmonary artery and branches are normal. Venous The inferior vena cava is normal in size and collapses greater than 50% with inspiration. Pericardium/Pleural There is no evidence of pericardial effusion. Prior Study Comparison No prior study available for comparison. Measurements 2D Linear Measurements IVSd: 1.02 0.6-0.9/0.6-1.0 cm LVIDd: 5.25 3.9-5.3/4.2-5.9 cm LVIDd Index: 3.09 2.4-3.2/2.2-3.1 cm/m2 LVIDs: 3.64 2.0-3.6 cm LVPWd: 1.04 0.7-1.1 cm Ao Root: 3.00 2.1-3.5 cm LA Diam: 3.60 2.7-3.8/3.0-4.0 cm LAIDs Index: 2.12 1.5-2.3 cm/m2 LV Mass: 255.75 67-162/88-224 g LV Mass Index: 150.44 43-95/49-115 g/m2 LVOT Diam: 2.60 3.0+(-)1.3 cm Mitral Valve MV Pk E: 0.81 MV PK A: 0.69 MV Decel Time: 340.00 E/A: 1.20 E'Lateral: 8.27 E'Medial: 7.51 E/E' Med: 10.80 E/E' Lat: 9.80 PHT: 99.00 MVA PHT: 2.22 Decel Kane: 2.40 Aortic Valve AoV Pk Nils: 2.10 AoV Mn Nils: 1.57 AoV VTI: 0.56 AoV Pk Grad: 18.00 Aov Mn Grad: 11.00 NOE Cont.VTI: 2.04 LVOT LVOT Pk Nils: 0.78 LVOT Mn Nils: 0.59 LVOT VTI: 0.21 LVOT Pk Grad: 2.00 LVOT Mn Grad: 2.00 LVOT Diam: 2.60 LVOT Area: 5.31 Diastolic Function MV Pk E: 0.81 MV Pk A: 0.69 E/A: 1.20 E'Medial: 7.51 E/E' Med: 10.80 E' Laterial: 8.27 E/E' Lat: 9.80 Tricuspid Valve TR Pk Nils: 1.99 TR Pk Grad: 16.00 RA Press: 3.00 RVSP: 19.00 Great Vessels Aorta Ao Root-2D: 3.00 2.0-3.7 cm Ao Asc: 3.50 2.1-3.4 cm Pulmonary Veins Pulm Vein S/D 1.40 Pulmonary Valve PV Pk Nils: 0.80 Peak PV Grad: 3.00 Updated in Other Vendor System with Status of Final Edward Perez MD electronically signed on 06/07/2025 11:42:38 AM with status of Final
--- OUTSIDE RECORDS SUMMARY | 2025-06-06 07:59 | XMS_ITS | Clinical Summary ---
Author Organization [facility] ity Address [address] [place] [phone] Care Team Providers Care Lens Dotter Name Role Phone Unavailable Primary Care Provider Unavailabl e Encounters Date Type Department Care Team Description 05/05/2025 Telephone Gastroenterology - [address] [place] [address] Bal Ward MD from Last [...]
== END ==
LOC: HO.CARD 07:56
PROVIDERS: PCP Family Medicine; Visit Provider Nurse Practitioner Family
DX: R01.1 Cardiac murmur, unspecified (principal)
CPT/HCPCS: 93306

== ENCOUNTER → 2025-06-06 07:58 | Outpatient (BNV) | payer BC, SELFPAY | PROVIDERS: PCP Family Medicine; Visit Provider Internal Medicine Cardiovascular Disease | DX: Q23.81 Bicuspid aortic valve (principal); I35.0 Nonrheumatic aortic (valve) stenosis; R01.1 Cardiac murmur, unspecified | CPT/HCPCS: 93306 ==

== ENCOUNTER 2025-06-11 14:49 | Outpatient (AMB) | payer BC, SELFPAY ==
--- NOTE | 2025-06-11 14:51 | MHC.PC.OV ---
Intake Visit Reasons: review echo results Intake Note: Telehealth to review echo results. 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 - Irregular heartbeats occur primarily at night, episodic, self-resolving. - No significant symptoms during physical activities, e.g., golfing. However this did happen today during the echo and while driving. - Family history includes a sister with Afib; considering hereditary aspects. - Post-surgical L knee pain with swelling, suggesting possible effusion. SAw NEOS in the past, needs new referral. Review of Systems - Cardiovascular: Reports episodic irregular heartbeat primarily at night. Denies consistent daily occurrence of episodes. - Musculoskeletal: Reports knee pain and swelling post-surgery. - General: Denies significant symptoms during physical activities. Results - Echocardiogram: See below Assessment and Plan 1. Bicuspid Aortic Valve with mild aortic stenosis - Refer to cardiology. Initiate Holter monitoring. - HAve children screened for bicuspid AV 2. Trace Mitral and Pulmonic Valve Regurgitation - No acute intervention needed. 3. Irregular Heartbeat - Holter monitor for arrhythmia evaluation. 4. Knee pain with previous surgical intervention, L - Orthopedic consultation for recurrent pain. NEOS 5. Family history with Afib - Educate on genetic considerations. Patient was given time to ask questions. All questions were answered to their satisfaction. Telehealth Attestation The patient has been explained that this is an interactive (audio/video) telehealth encounter and what that consists of. The patient understands and wishes to proceed. [employer] platform was used. Total time spent caring for the patient today was 35 minutes. This includes time spent before the visit reviewing the chart, time spent during the visit, and time spent after the visit on documentation, reviewing laboratory results, diagnostic imaging, medications, performing a medically necessary evaluation, counseling on diagnoses, care coordination, ordering appropriate tests, ordering appropriate medications, review of tests performed by other providers, reporting test results with the patient, communication with other healthcare providers. [facility] Medical History (Updated 06/11/25 @ 15:17 by Karla Gilmore [facility]) No pertinent past medical history Surgical History (Updated 06/11/25 @ 15:10 by KATYA Euceda-) H/O left knee surgery History of colonoscopy (~06/09/20) No pertinent past surgical history Social History Housing: House Patient Tobacco Use Status: Current everyday Tobacco user Cigarette Packs Per Day: 1 Cigarettes Per Day: 4 Years Smoked: 5 Packs Per Year: 5 Packs per year/per ci.00 e-Cigarette/Vaping Use: Never Used service: No Current occupational status: employed Current occupation: teacher Cognitive needs: No Hearing needs: No Vision needs: No Questionnaire Thrive Questionnaire Date Thrive assessed: 05/05/25 BRONWYN-7 AMB Questionnaire BRONWYN-7 Date BRONWYN - 7 assessed: 05/05/25 Source: Developed by Drs. Maxi Holly, Katherine Barrios, Tony Liao and colleagues, with an educational modesto from [employer]. Physical exam (Primary Care) Tobacco/Smoking Status: Tobacco use Status Tobacco use date assessed 05/05/25 06/11/25 14:52 Patient Tobacco Use Status Current everyday Tobacco 06/11/25 14:52 e-Cigarette/Vaping Use Never Used 06/11/25 14:52 Thrive Assessment: Date of Thrive Assessment Date Thrive assessed 05/05/25 06/11/25 14:52 Telehealth Telehealth Telehealth Platform: [employer] Location of provider rendering services: practice address Location of patient: address on file Patient Identification confirmed using: Name, : Yes Telehealth method: voice only Patient verbally consented to treatment: Yes Patient verbally consented to billing insurance company: Yes Patient informed of any privacy concerns related to visit: Yes Minutes spent on Phone/Video with Pt.: 20 Results Reviewed Results Reviewed: 05/2025 Conclusions: - 1. Normal LV ejection fraction 55-60% 2. Bicuspid aortic valve with early mild aortic stenosis 3. Upper limits of normal ascending aortic size 4. Normal RV systolic pressure 5. No gross pericardial effusion Findings Left Ventricle Normal left ventricular size, thickness, and systolic function. The visually estimated ejection fraction is between 55-60%. Spectral Doppler is indicative of a normal filling pattern. Right Ventricle Normal right ventricular cavity size and systolic function. Atria Both atria are normal in size. There is lipomatous hypertrophy of the interatrial septum. There is no evidence of interatrial shunt. Aortic Valve There is a bicuspid aortic valve. There is mild aortic valve stenosis. The mean gradient is 11 mmHg. The aortic valve area is 2.04 cm2. There is no aortic valve regurgitation. Mitral Valve Normal mitral valve structure and function. There is trace mitral valve regurgitation. There is no mitral valve stenosis. Pulmonic Valve The pulmonic valve is likely normal. There is trace pulmonic valve regurgitation. Tricuspid Valve Normal tricuspid valve structure. There is trace tricuspid valve regurgitation. The right ventricular systolic pressure is normal. The right ventricular systolic pressure is 19 mmHg. Normal right atrial pressure. There is no evidence of pulmonary hypertension. Great Vessels There is no dilatation of the ascending aorta measuring 3.50 cm. The visualized portions of the pulmonary artery and branches are normal. Venous The inferior vena cava is normal in size and collapses greater than 50% with inspiration. Pericardium/Pleural There is no evidence of pericardial effusion. Prior Study Comparison No prior study available for comparison. Coding Level of Care Code Tele Est Pt Level 4 (74210) Complex EM visit Add On G2211 Diagnoses Bicuspid aortic valve Q23.81 Aortic valve stenosis, mild I35.0 Chest pain R07.9 Palpitations R00.2 Prominent abdominal aortic pulse R09.89 H/O left knee surgery Z98.890 Assessment & Plan Assessment & Plan (1) Bicuspid aortic valve: Onset Date: 05/2025 Comment: 05/2025 Conclusions: - 1. Normal LV ejection fraction 55-60% 2. Bicuspid aortic valve with early mild aortic stenosis 3. Upper limits of normal ascending aortic size 4. Normal RV systolic pressure 5. No gross pericardial effusion Code(s): Q23.81 - Bicuspid aortic valve Category: Medical (2) Aortic valve stenosis, mild: Onset Date: 05/2025 Comment: 05/2025 Conclusions: - 1. Normal LV ejection fraction 55-60% 2. Bicuspid aortic valve with early mild aortic stenosis 3. Upper limits of normal ascending aortic size 4. Normal RV systolic pressure 5. No gross pericardial effusion Code(s): I35.0 - Nonrheumatic aortic (valve) stenosis Category: Medical (3) Chest pain: Code(s): R07.9 - Chest pain, unspecified Category: Medical (4) Palpitations: Code(s): R00.2 - Palpitations Category: Medical (5) Prominent abdominal aortic pulse: Code(s): R09.89 - Other specified symptoms and signs involving the circulatory and respiratory systems Category: Medical (6) H/O left knee surgery: Code(s): Z98.890 - Other specified postprocedural states Category: Surgical Plan . Orders: Orders ECG holter monitor 48 hour Today R00.2 - Palpitations Referrals Cardiology Referral I35.0 - Nonrheumatic aortic (valve) stenosis, Q23.81 - Bicuspid aortic valve, R00.2 - Palpitations, R07.9 - Chest pain, unspecified, R09.89 - Other specified symptoms and signs involving the circulatory and respiratory systems Orthopedics Referral M25.462 - Effusion, left knee, M25.562 - Pain in left knee, Z98.890 - Other specified postprocedural states
--- OUTSIDE RECORDS SUMMARY | 2025-06-11 16:12 | XMS_ITS | Clinical Summary ---
Author Organization [facility] ity Address [address] [place] [phone] Care Team Providers Care Food Quality Technician Name Role Phone Unavailable Primary Care Provider Unavailabl e Encounters Date Type Department Care Team Description 05/05/2025 Telephone Gastroenterology - [address] [place] [address] Bal Ward MD from Last [...]
== END 2025-06-11 15:59 | disposition home or self-care (01) ==
LOC: HO.HMCFM 14:49
PROVIDERS: PCP Nurse Practitioner Family; Visit Provider Nurse Practitioner Family
DX: R07.9 Chest pain, unspecified (principal); Q23.81 Bicuspid aortic valve; I35.0 Nonrheumatic aortic (valve) stenosis; R00.2 Palpitations; R09.89 Other specified symptoms and signs involving the circulatory and respiratory systems; Z98.890 Other specified postprocedural states

== ENCOUNTER → 2025-08-27 13:23 | Outpatient (REF) | payer MEDICARE, OTHER, SELFPAY ==
--- OUTSIDE RECORDS SUMMARY | 2025-08-27 16:17 | XMS_ITS | Clinical Summary ---
Author Organization [facility] ity Address [address] [place] [phone] Care Team Providers Care Public Health Engineer Name Role Phone Unavailable Primary Care Provider Unavailabl e Social History Tobacco Use Types Packs/Day Years Used Date Smoking Tobacco: Never Assessed Comments Unknown Sex and Gender Information Value Date Recorded Sex Assigned at Not on file Legal Sex Female 2:02 AM EST Gender Identity Not on file Sexual Orientation Not on file Plan of Treatment Health Maintenance Due Date Last Done Comments Breast Cancer Screening 1960 Colorectal Cancer Screening: Colonoscopy 1960 DTaP,Tdap,and Td Vaccines (1 - Tdap) 1978 Pneumococcal Vaccine: 50+ Ye ars (1 of 1 - PCV) 2009 Zoster Vaccines (1 of 2) 2009 Depression Screening 10/16/2024 Falls Risk Assessment 05/05/2025 Hepatitis C Screening 05/05/2025 Osteoporosis Screening (Bone Density Screening) 05/05/2025 Social Influencers of Health Screening 05/05/2025 COVID-19 Vaccine (1 - 2024-2 6 season) 2025 Influenza Vaccine (#1) 2025 RSV Immunization Adult [...]
== END ==
LOC: HO.CARD 13:23
PROVIDERS: PCP Nurse Practitioner Family; Visit Provider Nurse Practitioner Family
DX: R00.2 Palpitations (principal)
CPT/HCPCS: 93225

== ENCOUNTER → 2025-08-27 13:26 | Outpatient (BNV) | payer MEDICARE, OTHER, SELFPAY | PROVIDERS: PCP Nurse Practitioner Family; Visit Provider Internal Medicine | DX: I49.3 Ventricular premature depolarization (principal); I49.49 Other premature depolarization | CPT/HCPCS: 93244 ==

== ENCOUNTER 2025-10-06 12:52 | Outpatient (AMB) | payer MEDICARE, OTHER, SELFPAY ==
[2025-10-06 13:02] VITALS: BP 112/60; PULSE 67; BMI 22.8
--- NOTE | 2025-10-06 13:02 | A.OFFVIS_ITS ---
Vital Signs 10/06/25 13:02 Height 5 ft 6 in Weight 141 lb 1.533 oz BMI 22.8 BP 112/60 Blood Pressure Location Lt brachial Position Sitting Pulse 67 Pulse Source Pulse Oximeter Intake Visit Reasons: Palpitations Allergies acetaminophen (From PERCOCET) Allergy (Unknown, Verified 06/11/25 15:01) ITCHINESS Medication List - Last Reconciled 10/06/25 by Thomas Nj MD No Known Home Meds HPI Comments Details: History of Present Illness The patient is a 65-year-old female presenting for evaluation of a newly diagnosed heart murmur and palpitations. She was informed of the heart murmur at a recent visit with another provider and states she had never been told of this previously. She denies any prior known heart problems. For the past two years, she has experienced episodes of a forceful pounding heartbeat, which she can feel in her neck, that last from 30 seconds to a couple of minutes. She reports these episodes have increased in frequency over the last four months, occurring multiple times on some days and not at all on others. The palpitations typically occur at rest or while lying down, and not during physical activity. The patient reports that she is in the process of quitting smoking and she also drinks alcohol. She walks three miles every day. Her father had a history of atrial fibrillation. [facility] Medical History (Updated 10/06/25 @ 13:25 by Thomas Nj MD) No pertinent past medical history Surgical History (Updated 06/11/25 @ 15:10 by Karla Gilmore [facility]) History of colonoscopy (~06/09/20) H/O left knee surgery No pertinent past surgical history Family History (Updated 10/06/25 @ 13:06 by Kavitha Huang) Mother Blood clot in vein Father Atrial fibrillation by electrocardiogram Social History (Updated 10/06/25 @ 13:06 by Kavitha Huang) Housing: House Alcohol intake: current Alcohol intake frequency: 0-2 drinks per day Alcohol type: wine Patient Tobacco Use Status: Current everyday Tobacco user Cigarette Packs Per Day: 1 Cigarettes Per Day: 4 Years Smoked: 5 e-Cigarette/Vaping Use: Never Used service: No Current occupational status: employed Current occupation: teacher Cognitive needs: No Hearing needs: No Vision needs: No Review of Systems Const Denies weakness ENT Denies dizziness Card Denies chest pain, Denies chest pain with activity, Denies syncope, Denies rapid heart rate, Denies pedal edema, Denies edema, Denies leg edema, Denies lightheadedness, Reports palpitations, Denies dyspnea, Denies dyspnea on exertion and Denies orthopnea Resp Denies cough, Denies dyspnea and Denies dyspnea on exertion GI Denies hematochezia and Denies change in stool character Musc Denies abnormal gait, Denies muscle cramps, Denies muscle weakness, Denies numbness, Denies radiating pain into limb and Denies tingling Neuro Denies abnormal gait, Denies dizziness, Denies syncope, Denies numbness, Denies tingling and Denies weakness Endo Reports palpitations Physical Exam Vital Signs: Last Vital Signs Pulse 67 10/06/25 13:02 BP 112/60 10/06/25 13:02 BMI result Body Mass Index 22.8 Const General: comfortable and no acute distress Orientation/consciousness: patient oriented x3 HEENT Other: Unremarkable Head: Yes normal to inspection Neck Neck: Yes normal visual inspection Chest Chest palpation & inspection: normal inspection of the chest Resp Auscultation: clear to auscultation bilaterally Cardio Palpation: normal PMI Heart sounds: S1 normal heart sound present, S2 normal heart sound present, no gallops, Murmur heart sound present systolic II/ and at the right sternal border and no rubs GI Palpation (GI): Soft to palpation Back/Spine/Pelvis Other: unremarkable Skin General skin exam: no rashes or lesions noted Neuro General: patient oriented x3 Extrem General: Yes normal to inspection Psych Mental Status: mental status grossly normal Assessment & Plan Assessment & Plan (1) Bicuspid aortic valve: Onset Date: 05/2025 Comment: Code(s): Q23.81 - Bicuspid aortic valve Category: Medical Plan: Echocardiogram report and images reviewed. Patient has bicuspid aortic valve with early stenosis and no regurgitation. LVEF 55-60%. Pathophysiology discussed with patient including natural course and treatment options. We will check another echocardiogram in one year. (2) PVC (premature ventricular contraction): Code(s): I49.3 - Ventricular premature depolarization Category: Medical Plan: In the Holter monitor, PVC burden of about 6%. Likely etiology for her palpitations. Due to lowish blood pressures, we will not be suitable for beta- blockers or calcium channel blockers. Main recommendation would be to cut back on smoking, alcohol and stimulants. We will also do a stress test to assess further. Plan Discussion Notes I explained to the patient that her presentation involves two distinct cardiac issues: a structural problem with her aortic valve and an electrical issue causing her palpitations. 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 I reassured her that the valve is currently functioning adequately and is not the cause of her current symptoms, but that it will require annual monitoring, as it is expected to degenerate over time and may require replacement in several years. I also explained that her sensation of a pounding heartbeat is due to premature ventricular contractions (PVCs), and that a recent monitor showed a 6% burden. We discussed that medical treatment is challenging due to her low-normal blood pressure. I have ordered a stress test to further evaluate her heart's response to exertion, and I recommended she reduce or eliminate potential triggers like alcohol, smoking, and caffeine to see if symptoms improve. We agreed to a follow-up visit in three months to discuss the stress test results and any changes in her symptoms. Patient was informed and verbally consented to the use of an ambient scribe for clinic note documentation during this visit. Patient Instructions - You have two separate heart conditions: a bicuspid aortic valve (a valve with two flaps instead of three) and an electrical issue causing extra heartbeats (PVCs). - Your bicuspid valve is working well right now, but we will need to check it once a year with a heart ultrasound (echocardiogram) to monitor its function. - Your pounding heartbeat is caused by extra beats, which can be triggered by stimulants. To help manage this, please continue your efforts to quit smoking and try to reduce or stop drinking alcohol. You can also experiment with cutting back on coffee to see if that helps. - We have ordered a stress test for you. This test helps us see how your heart works when you are active. - The scheduling department will call you to arrange the appointment for your stress test. - Please schedule a follow-up appointment in our office in about three months to discuss your test results and how you are feeling. - Contact our office if you begin to experience new or worsening symptoms like progressive fatigue, shortness of breath, chest pain, or dizziness, as these could be related to your heart valve. Orders: Orders CA echo stress exercise Today I49.3 - Ventricular premature depolarization Coding Level of Care Code New Pt Level 4 (03334) Add On Problem Visit Only Diagnoses Bicuspid aortic valve Q23.81 PVC (premature ventricular contraction) I49.3
--- OUTSIDE RECORDS SUMMARY | 2025-10-06 16:04 | XMS_ITS | Clinical Summary ---
Author Organization [facility] ity Address [id number] [place] [id number] Care Team Providers Care Franchise Sales Manager Name Role Phone Unavailable Primary Care Provider [...]
== END 2025-10-06 13:32 | disposition home or self-care (01) ==
LOC: HO.HCS 12:53
PROVIDERS: PCP Nurse Practitioner Family; Visit Provider Internal Medicine
DX: Q23.81 Bicuspid aortic valve (principal); I49.3 Ventricular premature depolarization
CPT/HCPCS: 99214; G2211

== ENCOUNTER → 2025-10-06 12:52 | Outpatient (BNVA) | payer MEDICARE, OTHER, SELFPAY | PROVIDERS: PCP Nurse Practitioner Family; Visit Provider Internal Medicine | DX: Q23.81 Bicuspid aortic valve (principal); I49.3 Ventricular premature depolarization | CPT/HCPCS: 99212 ==